=== PATIENT | male | born 1960 | race Native Hawaiian/Other Pacific Islander ===

== ENCOUNTER 2019-03-09 07:12 | Day surgery (SDC) | payer OTHER, MEDICARE | END 2019-03-09 09:30 | disposition home or self-care (01) | LOC: OR 07:12 | PROC: 3E0R33Z Introduction of Anti-inflammatory into Spinal Canal, Percutaneous Approach (ICD-10-PCS; principal; 2019-03-09) | PROC: B01BYZZ Fluoroscopy of Spinal Cord using Other Contrast (ICD-10-PCS; 2019-03-09) | DX: M51.16 Intervertebral disc disorders with radiculopathy, lumbar region (principal) | CPT/HCPCS: J1020 ==

== ENCOUNTER 2019-04-06 08:09 | Day surgery (SDC) | payer OTHER, MEDICARE | END 2019-04-06 09:40 | disposition home or self-care (01) | LOC: OR 08:09 | PROC: 3E0R33Z Introduction of Anti-inflammatory into Spinal Canal, Percutaneous Approach (ICD-10-PCS; principal; 2019-04-06) | PROC: B01BYZZ Fluoroscopy of Spinal Cord using Other Contrast (ICD-10-PCS; 2019-04-06) | DX: M51.16 Intervertebral disc disorders with radiculopathy, lumbar region (principal) | CPT/HCPCS: J1020 ==

== ENCOUNTER 2019-11-23 07:21 | Day surgery (SDC) | payer OTHER ==
[~2019-11-23] VITALS: Ht 30.5 cm; Wt 0.5 kg
== END 2019-11-23 09:21 | disposition home or self-care (01) ==
LOC: OR 07:21
PROC: 3E0R33Z Introduction of Anti-inflammatory into Spinal Canal, Percutaneous Approach (ICD-10-PCS; principal; 2019-11-23)
PROC: B01BYZZ Fluoroscopy of Spinal Cord using Other Contrast (ICD-10-PCS; 2019-11-23)
DX: M51.16 Intervertebral disc disorders with radiculopathy, lumbar region (principal)
CPT/HCPCS: J1020

== ENCOUNTER 2020-02-09 08:12 | Outpatient (CLI) | payer OTHER | END 2020-02-09 20:10 | disposition home or self-care (01) | LOC: EMG 08:12 → RESP 08:30 → EMG 20:10 | DX: M51.16 Intervertebral disc disorders with radiculopathy, lumbar region (principal) | CPT/HCPCS: 95860; 95912 ==